=== PATIENT | male | born 1965 | race Caucasian/White ===

== ENCOUNTER 2021-12-25 17:08 | Emergency (ER) | payer OTHER, SELFPAY ==
[2021-12-25 18:10] VITALS: BP 115/62; PULSE 72; RESP 12; TEMP 36.3; O2SAT 99
--- NOTE | 2021-12-25 18:33 | ED.ANIMALBIT ---
HPI - Animal Bite General Chief Complaint: Animal Bite Stated Complaint: dog bite Time Seen by Provider: 12/25/21 18:33 Source: patient Mode of arrival: ambulatory Limitations: no limitations History of Present Illness HPI narrative: 56 y/o male presented for c/o dog bite to left upper arm that took place 2 days ago. Unknown if the dog is up to date on vaccinations, he states it is his friend's dog. He states the friend sent the dog on him. Pt applied gauze and electrical tape. Stating multiple times he wants us to cut off the extra piece of skin and throw it away. Currently denies new numbness, tingling, decreased range of motion or weakness of the left arm. Also reports history of titanium kendall to forearm and is concerned for damage, states he has always had some numbness from the elbow to wrist since previous injury. Patient is unsure of his tetanus status. Related Data Allergies Allergy/AdvReac Type Severity Reaction Status Date / Time No Known Allergies Allergy Verified 12/25/21 18:20 Review of Systems Review of Systems: CONSTITUTIONAL: Denies body aches, fever, chills, or sweats. EYES: Denies visual changes, redness, or discharge. CARDIOVASCULAR: Denies chest pain, palpitations, or edema. RESPIRATORY: Denies cough or dyspnea. SKIN: GÓMEZ dog bite wound MUSCULOSKELETAL: Denies back pain, joint pain, or myalgia. NEUROLOGIC: Denies headache, numbness, tingling, or weakness. PMFSH Comments At time of signature, I have reviewed and agree with nursing past medical, surgical, social and family history unless otherwise noted. Please see nursing chart for further information. There is no relevant family history pertinent to the presenting complaint Exam Narrative: GENERAL: Well-appearing HEAD: Normocephalic, atraumatic. EYES: conjunctivae clear, and EOMI. ENT: Mucous membranes moist. CHEST: Clear to auscultation. HEART: Regular rate and rhythm. SKIN: Warm, dry. Left upper arm with irregular wound approx 7cm x 5cm, skin avulsions and large thick skin flap to distal bicep area, no apparent tendon or nerve involvement; minimal bloody and purulent drainage, no induration or signs of cellulitis, full ROM to elbow, sensation and movement intact to fingers, cap refill <3 sec to left hand. Pulses palpable. NEURO: Alert and oriented x3. PSYCH: flat, anxious Course Course Emergency Course: Patient is aware of diagnosis, understands and agrees to treatment plan. Anticipatory guidance given. Patient agrees to follow-up as directed and is aware of reasons to seek care at the emergency department. Portions of this record may have been created with voice recognition software Level of Care: Express Care Visit Vital Signs Vital signs: Vital Signs Temperature 97.3 F L 12/25/21 18:10 Pulse Rate 72 12/25/21 18:10 Respiratory Rate 12 12/25/21 18:10 Blood Pressure 115/62 12/25/21 18:10 Pulse Oximetry 99 12/25/21 18:10 Temperature 97.3 F L 12/25/21 18:10 Pulse Rate 72 12/25/21 18:10 Respiratory Rate 12 12/25/21 18:10 Blood Pressure 115/62 12/25/21 18:10 Pulse Oximetry 99 12/25/21 18:10 Reviewed Procedures Other Procedure Procedure 1: Other Procedure: Left upper arm dog bite wound irrigated extensively with saline after home dressing was removed. Non adhesive drsg applied with gauze. MDM - Animal Bite MDM Narrative Medical decision making narrative: Pt's dressing from home removed with saline, to reveal large open wound with thick flap over distal bicep and skin avulsions to proximal aspect of bicep area. Reports the site of the flap felt numb and wants it cut off and left open. Small amount purulent drainage and bloody drainage. No odor or induration. No apparent signs of infection/cellulitis. Tetanus updated. IM ancef given. Rx augmentin and close f/u with plastic sugeon advised. Pt walking around the clinic, stating he wants to leave for 15 minutes to buy cigarettes. Also
[2021-12-25] MEDS: TETANUS,DIPHTHERIA,AC PERTUSSIS ADULT (0.5 ML) BOOSTRIX IM (19:31)
== END 2021-12-25 19:32 | disposition left against medical advice (07) ==
PROVIDERS: Emergency Provider Nurse Practitioner Family; Referring Provider Family Medicine
DX: S41.152A Open bite of left upper arm, initial encounter (principal); W54.0XXA Bitten by dog, initial encounter; Z23 Encounter for immunization
CPT/HCPCS: 90471; 90715; 99213; G0463; J0690

== ENCOUNTER 2021-12-27 21:46 | Emergency (ER) | payer OTHER, SELFPAY ==
--- NOTE | ~2021-12-27 | XR_ITS ---
EXAMINATION: XR forearm LT 2V DATE: 12/27/2021 22:42 INDICATION: Left forearm pain after dog bite 3 days prior TECHNIQUE: AP an lateral views of the left forearm were obtained. COMPARISON: none FINDINGS: Old healed mid diaphyseal fracture of the left ulna with some residual lucency along the fracture anthony ne which is spanned by a plate and screw fixation. Additional plate and screw fixation at the distal left ulnar diaphysis and posterior to the olecranon and proximal left ulna presumably for additional old healed fractures. Alignment is near-anatomic. No acute fractures identified. Mild osteoarthritis at the left elbow, wrist and first carpal metacarpal joint. Some irregularity to the skin surface at the anterolateral aspect of the distal left upper arm which may represent the site of the dog bite in [facility]. Soft tissues are otherwise unremarkable with no soft tissue gas or radiopaque foreign bodies. N o left elbow joint effusion. IMPRESSION: 1. No acute osseous abnormality, soft tissue gas or radiopaque foreign body. 2. Old healed left ulnar fracture with 3 separate plate and screw fixations. Reviewed, dictated and finalized at location A.
[2021-12-27 22:02] VITALS: BP 131/79; PULSE 66; RESP 16; TEMP 36.7; O2SAT 100
--- NOTE | 2021-12-27 23:43 | ED.WOUNDLAC ---
HPI - Wound/Laceration General Chief Complaint: Wound/Laceration Stated Complaint: LUE DOG BITE x 1 WEEK Time Seen by Provider: 12/27/21 21:48 History of Present Illness HPI narrative: Patient is a 56-year-old male who presents ER for evaluation of a wound to his left upper extremity. He reports 3 days ago he was bit by a dog that belonged to a person he knows. He reports that the individual told the dog to attack him. Reports the animal grabbed onto his arm and shook him and has caused some increased discomfort to his forearm. He reports he was seen at a hospital in [place] for his injuries. He reports that they refused to perform any x-rays that he requested. There was no repair performed to his arm. He denies having any prescriptions being written for him. He reports he did receive a tetanus shot. He has not contacted animal control or the Department of Health regarding rabies series. Patient is hoping to receive a x-ray of his left forearm because he has surgical hardware and he wants to see if the screws are loose. Related Data Allergies Allergy/AdvReac Type Severity Reaction Status Date / Time No Known Allergies Allergy Verified 12/27/21 22:01 Review of Systems Review of Systems: All systems reviewed & are unremarkable except as noted in HPI and below Constitutional: Constitutional: Denies chills, Denies fatigue and Denies fever(s) Musculoskeletal: Musculoskeletal: Denies arthralgias and Denies joint swelling Comments: Aching to the left forearm Integumentary/Breasts: Skin/Breast: Denies pruritus, Denies erythema and Denies rash Comments: Bite wound to the left upper extremity Neurologic: Denies numbness and Denies weakness PMFSH Past Medical History Medical History (Updated 12/28/21 @ 00:00 by Sebastian Rosado MD) Healthy adult male Surgical History Surgical History (Updated 12/28/21 @ 00:00 by Sebastian Rosado MD) History of orthopedic surgery Left forearm surgery Social History Social History (Updated 12/28/21 @ 00:00 by Sebastian Rosado MD) Smoking status: Current every day smoker Exam Narrative: GENERAL: Well-appearing, well-nourished, and in no acute distress. HEAD: Normocephalic, atraumatic. ENT: Mucous membranes moist. CHEST: Clear to auscultation. No respiratory distress. HEART: Regular rate and rhythm. Normal peripheral pulses. EXTREMITIES: Focused exam of the left upper extremity reveals incomplete extension at the elbow likely from chronic injury and previous surgery. No tenderness at the shoulder/hand/wrist. Elbows also nontender despite limited range of motion. SKIN: Warm, dry, no rash. There is what appears to be a healing bite wound to the left upper extremity laterally. Dimensions described below. Superior to the open wound or 2 scabs consistent with superficial breakage of the skin one on the left measuring 1 cm x 1.5 cm, and 1 on the right measuring 0.8 cm x 1 cm. NEURO: Alert and oriented x3. PSYCH: Normal mood and affect. Skin: Full body images: 1. 4cm 2. 3.5cm 3. 3cm 4. 2cm 5. 2.5cm Course Course Emergency Course: There is no evidence of infection to the wound as there is no surrounding cellulitis and there is no purulent drainage Patient educated in regards to this. Wound will have to heal by secondary intention given that the flap on the inferior aspect is already hardened and nothing can be aligned. Is very difficult after 24 hours from initial injury. Imaging shows no acute changes to the surgical hardware. Patient requesting pain medication and will be given a 3-day supply which is typical of an ER visit. We discussed the importance of contacting both the health department and animal control regarding his injury. Also discussed he needs to continue to have his wound evaluated in an outpatient setting either primary care physician or potentially plastic surgeon who specializes in wound management. Phone numbers have been provided Vital S
[2021-12-27] MEDS: HYDROcodone/acetaminophen (*CRX) 5-325 MG TABLET 1 TAB PO (23:57)
[2021-12-28 00:04] VITALS: BP 132/79; PULSE 75; RESP 16; O2SAT 96
== END 2021-12-28 00:29 | disposition home or self-care (01) ==
PROVIDERS: Emergency Provider Emergency Medicine
DX: S41.152A Open bite of left upper arm, initial encounter (principal); F17.200 Nicotine dependence, unspecified, uncomplicated; W54.0XXA Bitten by dog, initial encounter
CPT/HCPCS: 73090; 99283; A9270

== ENCOUNTER 2025-02-25 23:05 | Emergency (ER) | payer OTHER, SELFPAY ==
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
--- NOTE | ~2025-02-25 | CT_ITS ---
EXAMINATION: CT chest abdomen pelvis w con DATE: 02/26/2025 00:41 INDICATION: Right abdominal pain. TECHNIQUE: Computed tomography (CT) of the chest, abdomen, and pelvis was performed with 100 mL Omnipaque 350 intravenous contrast. Automated exposure control and iterative reconstruction technique were employed. The dose-length product was 776.69 mGy-cm. COMPARISON: None FINDINGS: CHEST CT: The lungs demonstrate mild atelectasis. A calcified left lung nodule and calcified left hilar and mediastinal lymph nodes are consistent with old granulomatous disease. No pleural effusion. The heart size is normal. No pericardial effusion. There is mild thoracic spondylosis. There are old bilateral rib fractures. ABDOMEN/PELVIS CT: The liver, gallbladder, spleen, pancreas, adrenal glands, and right kidney are normal. There is a 12 mm cyst in left kidney. There are no dilated loops of bowel. The appendix is not visualized. There are no pathologically enlarged lymph nodes. There is no free intraperitoneal fluid. There is severe lower lumbar spondylosis. There are nondisplaced fractures of right superior and inferior pubic rami and right acetabulum. There is moderate osteoarthritis of the hips. IMPRESSION: 1. Nondisplaced fractures of right superior and inferior pubic rami and right acetabulum. Reviewed, dictated and finalized at location E. Y JUMP MASTER IMPRESSION: 1. Nondisplaced fractures of right superior and inferior pubic rami and right a cetabulum.
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
[2025-02-25 23:07] VITALS: BP 107/67; PULSE 78; RESP 20; TEMP 36.6; O2SAT 100
[2025-02-25] MEDS: HYDROmorphone HCL INJ (*CRX) 1 MG/ML SYR 0.5 MG IV PUSH (23:32)
--- NOTE | 2025-02-25 23:39 | PC.NURSE ---
Pt refusing to let this RN insert IV d/t pt stating I do not want her putting in IV because she is prejudice and pt stated he would rather walk home than have me insert IV. Another RN inserted IV. Pt allowed this RN to administer pain med. Pt refusing lactic acid to be drawn at this time. Pt AOx4.
[2025-02-25 23:49] LABS: Hematocrit 41.4 % (42.0-52.0); Hemoglobin 14.0 g/dL (14.0-18.0); Immature Granulocyte Percent A 0.6 % (0-0.5); Lymphocytes Absolute Auto 1.97 K/mm3 (0.9-3.2); Mean Corpuscular HGB Conc 33.8 g/dl (32-36); Mean Corpuscular Hemoglobin 32.9 pg (26-34); Mean Corpuscular Volume 97.2 fl (80-100); Nucleated Red Blood Cells Absolute Auto 0.000 K/mm3 (0.0-0.012); Nucleated Red Blood Cells Perc 0.0 % (0.0-0.2); Platelet Count Result 168 k/mm3 (150-375); Red Blood Count 4.26 M/mm3 (4.6-6.20); White Blood Count 5.3 K/mm3 (4.5-10.0)
[2025-02-26 00:02] LABS: INR 0.9; Prothrombin Time 12.6 Seconds (11.1-14.7)
[2025-02-26 00:03] LABS: Partial Thromboplastin Time 27.7 Seconds (22.3-36.8)
[2025-02-26 00:08] LABS: Alanine Aminotransferase 138 U/L (6-50); Albumin Level 4.0 g/dL (3.5-5.1); Alkaline Phosphatase 134 U/L (38-126); Anion Gap 7 mmol/L (4-12); Aspartate Amino Transferase 203 U/L (17-59); Bilirubin,Total 0.5 mg/dL (0.2-1.3); Blood Urea Nitrogen 15 mg/dL (9-20); Calcium 9.0 mg/dL (8.4-10.2); Carbon Dioxide 27 mmol/L (22-30); Chloride 101 mmol/L (98-107); Creatine Kinase 146 U/L (55-170); Estimated CRCL calculation 88 ml/min; Estimated Glomerular Filt Rate > 60; Glucose 79 mg/dL (65-110); Lipase 83 U/L (23-300); Magnesium 2.0 mg/dL (1.6-2.3); Potassium 3.9 mmol/L (3.4-5.0); Sodium 135 mmol/L (137-145); Total Protein 7.2 g/dL (6.3-8.2)
[2025-02-26 00:27] LABS: Troponin I < 0.012 ng/mL (0.000-0.034)
--- NOTE | 2025-02-26 00:31 | PC.NURSE ---
Pr refusing to provide urine sample at this time. PT AOx4.
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
== END 2025-02-26 03:09 | disposition short-term general hospital (02) ==
PROVIDERS: Emergency Provider Emergency Medicine
DX: S32.591A Other specified fracture of right pubis, initial encounter for closed fracture (principal); S82.145A Nondisplaced bicondylar fracture of left tibia, initial encounter for closed fracture; V13.4XXA Pedal cycle driver injured in collision with car, pick-up truck or van in traffic accident, initial encounter; Y93.55 Activity, bike riding
CPT/HCPCS: 36415; 70450; 71045; 71260; 72125; 72170; 73590; 74177; 80053; 82077; 82550; 83690; 83735; 84484; 85025; 85610; 85730; 96374; 99285; J1171; Q9967